=== PATIENT | male | born 1990 ===

== ENCOUNTER 2024-05-15 17:47 | Emergency (ER) | payer OTHER ==
--- NOTE | 2024-05-15 18:55 | RAD REPORT ---
EXAMINATION: XR LEFT FOREARM CLINICAL INDICATION: PAIN TECHNIQUE: Multiple projections of the left forearm were obtained. COMPARISON: No prior exam. FINDINGS: No bone or joint abnormality seen.
--- NOTE | 2024-05-15 18:56 | RAD REPORT ---
EXAMINATION: XR LEFT TIBIA AND FIBULA CLINICAL INDICATION: . PAIN TECHNIQUE:Two view radiograph of the left tibia and fibula were obtained. COMPARISON: No prior exam. FINDINGS: No bone or joint abnormality detected.
--- NOTE | 2024-05-15 18:56 | RAD REPORT ---
EXAMINATION: XR RIGHT TIBIA AND FIBULA CLINICAL INDICATION: PAIN TECHNIQUE:Two view radiograph of the right tibia and fibula were obtained. COMPARISON: No prior exam. FINDINGS: No bone or joint abnormality detected.
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
[2024-05-16 01:29] VITALS: BP 131/90; O2SAT 98
== END 2024-05-15 19:39 | disposition home or self-care (01) ==
LOC: ER 17:47
DX: S50.812A Abrasion of left forearm, initial encounter (principal); S50.12XA Contusion of left forearm, initial encounter; M79.662 Pain in left lower leg; M79.661 Pain in right lower leg; V49.49XA Driver injured in collision with other motor vehicles in traffic accident, initial encounter
CPT/HCPCS: 99283